=== PATIENT | female | born 1995 | race Caucasian/White ===

== ENCOUNTER 2017-01-21 19:56 | Emergency (ER) | payer OTHER ==
[~2017-01-21] VITALS: Ht 157.5 cm; Wt 75.3 kg
[2017-01-21 21:06] VITALS: BP 126/73
== END 2017-01-21 21:14 | disposition home or self-care (01) ==
LOC: EME 19:56
DX: M22.02 Recurrent dislocation of patella, left knee (principal)
CPT/HCPCS: 99281; 99284